=== PATIENT | female | born 2005 | race African-American/Black ===

== ENCOUNTER 2024-09-01 10:55 | Day surgery (SDC) | payer BC, OTHER ==
[2024-09-01] MEDS ORDERED: hydrALAZINE 20 MG/ML VIAL SLOW IVP PRN (11:25)
== END 2024-09-01 12:26 | disposition home or self-care (01) ==
LOC: CSHLD/OP 10:55
PROVIDERS: ATTEND Family Medicine
DX: O13.3 Gestational [pregnancy-induced] hypertension without significant proteinuria, third trimester (principal); Z3A.36 36 weeks gestation of pregnancy; Z79.899 Other long term (current) drug therapy
CPT/HCPCS: 99282